=== PATIENT | female | born 1965 | race Caucasian/White ===

== ENCOUNTER 2017-08-19 18:53 | Inpatient (IN) | payer OTHER ==
[2017-08-19 19:43] VITALS: BP 123/60; PULSE 109; RESP 16; TEMP 98.8; O2SAT 80
[2017-08-19 19:50] VITALS: BP 129/70; PULSE 110; RESP 18; TEMP 98.5; O2SAT 78
[2017-08-19 19:52] VITALS: O2SAT 90
[2017-08-19] MEDS ORDERED: GABA400C5 PO (20:00)
[2017-08-19] MEDS ORDERED: ATOR40TA16 PO (20:00)
[2017-08-19] MEDS ORDERED: CYCL5TAB PO (20:00)
[2017-08-19] MEDS ORDERED: DULO1CAP PO (20:00)
[2017-08-19] MEDS ORDERED: LISI10TA3 PO (20:00)
[2017-08-19] MEDS ORDERED: OMEP20TA93 PO (20:00)
[2017-08-19] MEDS ORDERED: METF-382 PO (20:00)
[2017-08-19] MEDS ORDERED: LANTUS2P SQ (20:00)
[2017-08-19] MEDS ORDERED: AZITHROMYCIN 250 MG TAB PO ONE (20:15)
[2017-08-19] MEDS ORDERED: predniSONE 20 MG TAB PO ONE (20:15)
[2017-08-19] MEDS ORDERED: RESP: ALBUTEROL 2.5 MG/IPRATROPIUM 0.5 MG NEB (SCH) NEB ONE ×2 (20:15→22:00)
--- NOTE | 2017-08-19 20:15 | PD ---
HPI Chief Complaint: Cold / Flu Symptoms Time Seen by Provider: 20:03 Travel History International Travel<30 days: No Contact w/Intl Traveler<30days: No Traveled to known affect area: No History of Present Illness HPI Patient is a 51-year-old female with a history of COPD for the last few days she has had a sore throat cough congestion she thinks she has a cold or flu. She has inhaler Combivent HFA which is not relieving her symptoms. She is using it every 6 hours without relief. She is an insulin-dependent diabetic on Lantus 44 units p.m. She is not on steroids at this time she is not on antibiotic she has not seen another doctor for this complaint main complaint is shortness of breath tightness in the chest wheezing and feeling mild air hunger PFSH Past Medical History Diabetes: Yes Patient Takes Glucophage: Yes Diminished Hearing: No ?: Not Past Surgical History Surgical History: No Previous Surgery Social History Alcohol Use: No Tobacco Use: Yes (1PPD ) Substance Use: No Allergies-Medications (Allergen,Severity, Reaction): Coded Allergies: Penicillins (Verified Allergy, Intermediate, 08/19/17) Reported Meds & Prescriptions Reported Meds & Active Scripts Active Oxygen tank (Oxygen) 1 Ea Tank Liter CARLYN.CANOasys Mobile CONTINUOUS Oxygen Concentrator Portable Gaseous 2 L/min via Nasal Cannula Continuous For 99 months Prednisone 20 Mg Tab 40 Mg PO DAILY Take 40 mg (2 tablets) daily for 5 days Atrovent HFA 12.9 GM Inh (Ipratropium [place]) 17 Mcg/Actuation Aer 2 Puff INH Q6HR Ventolin Hfa 18 GM Inh (Albuterol Sulfate) 90 Mcg/Act Aer 2 Puff INH Q4H PRN [Budeson-Formot 160-4.5 Mcg Inh] 60 PUFF Aero 2 Puff INH Q12HR Hydrocodone-Acetamin 5-325 mg (Hydrocodone/Acetaminophen) 5 Mg-325 Mg Tablet 1 Tab PO Q6H PRN Levaquin (Levofloxacin) 750 Mg Tablet 750 Mg PO DAILY Reported Gabapentin 400 Mg Cap 400 Cap PO TID Omeprazole 20 Mg Tab 20 Mg PO DAILY Atorvastatin (Atorvastatin Calcium) 40 Mg Tab 40 Mg PO HS Duloxetine DR (Duloxetine HCl) 20 Mg Capdr 20 Mg PO DAILY Flexeril (Cyclobenzaprine HCl) 5 Mg Tab 5 Mg PO TID Metformin ER (Metformin HCl) 1,000 Mg Brandt 1,000 Mg PO BID With evening meal Lisinopril 10 Mg Tab 10 Mg PO DAILY Review of Systems Except as stated in HPI: all other systems reviewed are Neg Physical Exam Narrative GENERAL: Mild respiratory distress SKIN: Warm and dry. HEAD: Atraumatic. Normocephalic. EYES: Pupils equal and round. No scleral icterus. No injection or drainage. ENT: No nasal bleeding or discharge. Mucous membranes pink and moist. NECK: Trachea midline. No JVD. CARDIOVASCULAR: Regular rate and rhythm. RESPIRATORY: Patient is using accessory muscles minimally diffuse coarse breath sounds with expiratory wheeze in all lung klein upper and lower bilateral patient is deciding on room air to 85% O2. On 2 L she is satting at 90 at best GASTROINTESTINAL: Abdomen soft, non-tender, nondistended. Hepatic and splenic margins not palpable. MUSCULOSKELETAL: Extremities without clubbing, cyanosis, or edema. No obvious deformities. NEUROLOGICAL: Awake and alert. No obvious cranial nerve deficits. Motor grossly within normal limits. Five out of 5 muscle strength in the arms and legs. Normal speech. PSYCHIATRIC: Appropriate mood and affect; insight and judgment normal. Data Data Last Documented VS Vital Signs Date Time Temp Pulse Resp B/P (MAP) Pulse Ox O2 Delivery O2 Flow Rate FiO2 08/20/17 01:30 91 BiPAP 80 08/20/17 01:15 6.00 08/20/17 00:00 103 18 08/19/17 19:50 98.5 Orders Orders Chest, Single Ap (08/19/17 ) Influenzae A/B Antigen (08/19/17 19:50) Complete Blood Count With Diff (08/19/17 19:53) Basic Metabolic Panel (Bmp) (08/19/17 19:53) Prednisone (Deltasone) (08/19/17 20:15) Albuterol-Ipratropium Neb (Duoneb Neb) (08/19/17 20:15) Azithromycin (Zithromax) (08/19/17 20:15) Group A Rapid Strep Screen (08/19/17 20:24) Strep Culture (Group A) (08/19/17 21:00) Resp Oxygen Venturi Mask (08/19/17 ) Albuterol-Ipratropium Neb (Duoneb Neb) (08/19/17 22:00) Arterial Blood Gas (Abg) (08/19/17 ) Resp Bipap / Cpap Non Invas Vt (08/20/17 ) Methylprednisolone So Succ Inj (Solumedr (08/20/17 06:00) Budeson-Formot 160-4.5 Mcg Inh (Symbicor (08/20/17 09:00) Guaifenesin Er (Mucinex Er) (08/20/17 09:00) Albuterol-Ipratropium Neb (Duoneb Neb) (08/20/17 08:00) Albuterol-Ipratropium Neb (Duoneb Neb) (08/20/17 01:30) Admit To Inpatient (08/20/17 ) Vital Signs (Adult) Q4H (08/20/17:17) Activity Oob With Assistance (08/20/17:17) Cardiac Sonographer / Telemetry .CONTINUOUS (08/20/17:17) Intake + Output LEEANNA.QSHIFT (08/20/17 01:17) Diet 1800 Ada Cons Carb (08/20/17 Breakfast) Sodium Chloride 0.9% Flush (Ns Flush) (08/20/17 01:30) Sodium Chloride 0.9% Flush (Ns Flush) (08/20/17 09:00) Ondansetron Inj (Zofran Inj) (08/20/17 01:30) Comprehensive Metabolic Panel (08/21/17 06:00) Complete Blood Count With Diff (08/21/17 06:00) Heparin Inj (Heparin Inj) (08/20/17 09:00) Acetaminophen (Tylenol) (08/20/17 01:30) Acetamin-Hydrocod 325-5 Mg ([place] 5-325 (08/20/17 01:30) Morphine Inj (Morphine Inj) (08/20/17 01:30) Docusate Sodium-Senna (Amy-Colace) (08/20/17 09:00) Magnesium Hydroxide Liq (Milk Of Magnesi (08/20/17 01:30) Sennosides (Senokot) (08/20/17 01:30) Bisacodyl Supp (Dulcolax Supp) (08/20/17 01:30) Lactulose Liq (Lactulose Liq) (08/20/17 01:30) Inpatient Certification (08/20/17 ) Bedside Glucose LEEANNA.CSUGAR (08/20/17 01:17) Blood Glucose Goal (Criteria) (08/20/17 01:17) Hypoglycemia 70 Mg/Dl Or < (08/20/17 01:17) Notify Dr: Other (08/20/17 01:17) Dextrose 50% In Micky (Vial) Inj (D50w (Vi (08/20/17 01:30) Glucagon Inj (Glucagon Inj) (08/20/17 01:30) Insulin Aspart Supplemtl Scale (Novolog (08/20/17 08:00) Atorvastatin (Lipitor) (08/20/17 21:00) Cyclobenzaprine (Flexeril) (08/20/17 09:00) Duloxetine Dr (Dheeraj Roberts) (08/20/17 09:00) Gabapentin (Neurontin) (08/20/17 09:00) Lisinopril (Prinivil) (08/20/17 09:00) Pantoprazole (Protonix) (08/20/17 09:00) Insulin Detemir Inj (Levemir Inj) (08/20/17 21:00) Levofloxacin 750 Mg Premix Inj (Levaquin (08/20/17 01:30) Admit Order (Ed Use Only) (08/20/17 01:28) Labs Laboratory Tests Test 08/19/17 19:58 08/19/17 23:45 White Blood Count 5.1 TH/MM3 Red Blood Count 5.44 MIL/MM3 Hemoglobin 16.2 GM/DL Hematocrit 49.3 % Mean Corpuscular Volume 90.6 FL Mean Corpuscular Hemoglobin 29.7 PG Mean Corpuscular Hemoglobin Concent 32.8 % Red Cell Distribution Width 14.5 % Platelet Count 197 TH/MM3 Mean Platelet Volume 8.9 FL Neutrophils (%) (Auto) 72.6 % Lymphocytes (%) (Auto) 16.2 % Monocytes (%) (Auto) 10.8 % Eosinophils (%) (Auto) 0.0 % Basophils (%) (Auto) 0.4 % Neutrophils # (Auto) 3.7 TH/MM3 Lymphocytes # (Auto) 0.8 TH/MM3 Monocytes # (Auto) 0.6 TH/MM3 Eosinophils # (Auto) 0.0 TH/MM3 Basophils # (Auto) 0.0 TH/MM3 CBC Comment DIFF FINAL Differential Comment Blood Urea Nitrogen 17 MG/DL Creatinine 0.78 MG/DL Random Glucose 331 MG/DL Calcium Level 8.0 MG/DL Sodium Level 129 MEQ/L Potassium Level 3.8 MEQ/L Chloride Level 91 MEQ/L Carbon Dioxide Level 31.0 MEQ/L Anion Gap 7 MEQ/L Estimat Glomerular Filtration Rate 77 ML/MIN Blood Gas Puncture Site LT RADIAL Blood Gas Patient Temperature 98.6 Blood Gas HCO3 30 mmol/L Blood Gas Base Excess 5.1 mmol/L Blood Gas Oxygen Saturation 88 % Arterial Blood pH 7.37 Arterial Blood Partial Pressure CO2 53 mmHg Arterial Blood Partial Pressure O2 62 mmHG Arterial Blood Oxygen Content 19.4 Vol % Arterial Blood Carboxyhemoglobin 1.6 % Arterial Blood Methemoglobin 1.0 % Blood Gas Hemoglobin 15.6 G/DL Oxygen Delivery Device Venti Mask Blood Gas Liter Flow 6 L/M Blood Gas Inspired Oxygen 50 % MDM Medical Decision Making Medical Screen Exam Complete: Yes Emergency Medical Condition: Yes Differential Diagnosis Influenza causing airway reaction versus bronchitis COPD exacerbation versus pneumonia, vs Pneumothorax, Pulmonary embolism Narrative Course Patient is given 3 DuoNeb's and 60 p.o. prednisone she continues to desat even on 3 L nasal cannula she is satting at 88 she switched over to a Ventimask with 40% FiO2 and needs to be increased to 50% FiO2 on Ventimask to hold her sat around 91 she is admitted for further pulmonary care of her inflamed lungs due to her virus bronchitis and COPD. Even on venti mask with 50% still sating 93 at best 85 % as well BiPAP started admitted [facility] PE study negative Diagnosis Primary Impression: COPD (chronic obstructive pulmonary disease) Scripts Insulin Detemir Inj (Levemir Inj) 1,000 unit/ 10 ML Vial 35 UNITS SQ DAILYAC for Blood Sugar Management, #30 INJECTION Do not mix with any other Insulin. Prov: Stephan Peterson MD 08/22/17 Insulin Detemir Inj (Levemir Inj) 1,000 unit/ 10 ML Vial 55 UNITS SQ HS for Blood Sugar Management, #30 INJECTION Do not mix with any other Insulin. Prov: Stephan Peterson MD 08/22/17 Oxygen tank (Oxygen tank) 1 Ea Tank LITER CARLYN.CANULA CONTINUOUS for HYPOXEMIA PREVENTION, #1 Oxygen Concentrator Portable Gaseous 2 L/min via Nasal Cannula Continuous For 99 months Prov: Stephan Peterson MD 08/20/17 Prednisone (Prednisone) 20 Mg Tab 40 MG PO DAILY for Control Inflammation, #10 TAB 0 Refills Take 40 mg (2 tablets) daily for 5 days Prov: Stephan Peterson MD 08/20/17 Ipratropium HFA 12.9 GM Inh (Atrovent HFA 12.9 GM Inh) 17 Mcg/Actuation Aer 2 PUFF INH Q6HR for Breathing Treatment, #1 INHALER 0 Refills Prov: Stephan Peterson MD 08/20/17 Albuterol 18 GM Inh (Ventolin Hfa 18 GM Inh) 90 Mcg/Act Aer 2 PUFF INH Q4H Y for SHORTNESS OF BREATH, #1 INHALER 0 Refills Prov: Stephan Peterson MD 08/20/17 [Budeson-Formot 160-4.5 Mcg Inh] 60 PUFF AERO No Conflict Check 2 PUFF INH Q12HR for Breathing Treatment, #1 PUFF Prov: Stephan Peterson MD 08/20/17 Hydrocodone/Acetaminophen (Hydrocodone-Acetamin 5-325 mg) 5 Mg-325 Mg Tablet 1 TAB PO Q6H Y for PAIN SCALE 3 TO 5, #28 TAB Prov: Stephan Peterson MD 08/20/17 Levofloxacin (Levaquin) 750 Mg Tablet 750 MG PO DAILY for Infection, #4 TAB 0 Refills Prov: Stephan Peterson MD 08/20/17 Francisco Quezada MD Aug 19, 2017 20:15
[2017-08-19 20:27] LABS: AUTOMATED NEUTROPHIL # 3.7 TH/MM3 (1.8-7.7); BASOPHIL % 0.4 % (0.0-2.0); HEMATOCRIT 49.3 % (35.0-46.0); HEMOGLOBIN 16.2 GM/DL (11.6-15.3); LYMPH % 16.2 % (9.0-44.0); LYMPHOCYTE # 0.8 TH/MM3 (1.0-4.8); MEAN CELL VOLUME 90.6 FL (80.0-100.0); MEAN CORPUSCULAR HEMOGLOBIN 29.7 PG (27.0-34.0); MEAN CORPUSCULAR HGB CONC 32.8 % (32.0-36.0); MEAN PLATELET VOLUME 8.9 FL (7.0-11.0); MONO % 10.8 % (0.0-8.0); MONOCYTE # 0.6 TH/MM3 (0-0.9); NEUT % 72.6 % (16.0-70.0); PLATELET COUNT 197 TH/MM3 (150-450); RED BLOOD COUNT 5.44 MIL/MM3 (4.00-5.30); RED CELL DISTRIBUTION WIDTH 14.5 % (11.6-17.2); WHITE BLOOD COUNT 5.1 TH/MM3 (4.0-11.0)
--- NOTE | 2017-08-19 20:35 | RADRPT ---
EXAM DATE/TIME: 08/19/2017 20:00 [facility] COMPARISON: No previous studies available for comparison. INDICATIONS : Shortness of breath MEDICAL HISTORY : Chronic obstructive pulmonary disease. SURGICAL HISTORY : None. ENCOUNTER: Initial ACUITY: 1 day PAIN SCORE: 0/10 LOCATION: Bilateral chest FINDINGS: A single view of the chest demonstrates the lungs to be symmetrically aerated without evidence of mas s, infiltrate or effusion. The cardiomediastinal contours are unremarkable. Osseous structures are intact. CONCLUSION: No acute disease. Yong Pavon MD on August 19, 2017 at 20:33 Board Certified Radiologist. This report was verified electronically.
[2017-08-19 20:56] LABS: CREATININE 0.78 MG/DL (0.50-1.00)
[2017-08-19 21:00] VITALS: BP 153/76; PULSE 104; RESP 16; O2SAT 89
[2017-08-19 22:00] VITALS: BP 142/72; PULSE 103; RESP 18; O2SAT 87
[2017-08-19 23:00] VITALS: O2SAT 88
[2017-08-20] VITALS (20 sets, daily range): BP systolic 95–133; BP diastolic 51–89; PULSE 72–103; RESP 13–23; TEMP 98.1–98.8; O2SAT 72–94
[2017-08-20] MEDS ORDERED: ACETAMINOPHEN/HYDROcodone 325 MG/5 MG TAB PO PRN (01:30)
[2017-08-20] MEDS ORDERED: BISACODYL 10 MG SUPP RECTAL PRN (01:30)
[2017-08-20] MEDS ORDERED: RESP: ALBUTEROL 2.5 MG/IPRATROPIUM 0.5 MG NEB (PRN) NEB (01:30)
[2017-08-20] MEDS ORDERED: DEXTROSE 50% IN WATER 50 ML VIAL(D50) IV PUSH PRN (01:30)
[2017-08-20] MEDS ORDERED: ONDANSETRON HCL 4 MG/2 ML VIAL IVP PRN (01:30)
[2017-08-20] MEDS ORDERED: MORPHINE SULFATE 2 MG/ML SYRINGE IV PUSH PRN (01:30)
[2017-08-20] MEDS ORDERED: MAGNESIUM HYDROXIDE SUSP 30 ML CUP PO PRN (01:30)
[2017-08-20] MEDS ORDERED: LACTULOSE SYRUP 20 GM/30 ML CUP PO PRN (01:30)
[2017-08-20] MEDS ORDERED: GLUCAGON 1 MG/ML VIAL OTHER PRN (01:30)
[2017-08-20] MEDS ORDERED: SENNOSIDES 8.6 MG TAB PO PRN (01:30)
[2017-08-20] MEDS ORDERED: SODIUM CHLORIDE 0.9% FLUSH 10 ML FLUSH IV FLUSH PRN (01:30)
[2017-08-20] MEDS ORDERED: ACETAMINOPHEN 325 MG TAB PO PRN (01:30)
--- NOTE | 2017-08-20 01:36 | HHI.HP ---
[facility] Admission Diagnosis Diagnoses: (1) COPD (chronic obstructive pulmonary disease) Diagnosis: Principal (2) Hypoxia Diagnosis: Principal (3) DM (diabetes mellitus) Diagnosis: Principal Travel History International Travel<30 Days: No Contact w/Intl Traveler <30 Da: No Traveled to Known Affected Are: No History of Present Illness This is a 51-year-old female with a PMH of DM, COPD and Tobacco Abuse who presented to ER with complaints of SOB, wheezing, congestion and sore throat x3 days. States she has been using Combivent at home w/ minimal relief. Denies fever or chills. No sick contacts. On arrival, BP 129/70, HR 110, O2 sat 78% on RA, Afebrile. CBC essentially unremarkable. Chemistry unremarkable except for Na 129, BS 331. ABG 7.37, PCO2 53, PO2 62 on 50% Ventimask. CXR w/ no acute findings. Flu Negative, Strep Negative. S/p Prednisone 60mg po and DuoNeb in ER w/ minimal improvement. Review of Systems Except as stated in HPI: all other systems reviewed are Neg ROS: 14 point review of systems otherwise negative. Past Family Social History Past Medical History PMH: DM, COPD and Tobacco Abuse Past Surgical History PAST SURGICAL HISTORY: None Allergies: Coded Allergies: Penicillins (Verified Allergy, Intermediate, 08/19/17) Family History PAST FAMILY HISTORY: Reviewed. No h/o DM or CAD Social History PAST SOCIAL HISTORY: Negative for alcohol or drugs. Smokes 1ppd. Physical Exam Vital Signs Vital Signs Date Time Temp Pulse Resp B/P (MAP) Pulse Ox O2 Delivery O2 Flow Rate FiO2 08/20/17 00:00 103 18 133/59 (83) 88 Venturi Mask 50 08/19/17 23:00 88 Venturi Mask 50 08/19/17 22:00 103 18 142/72 (95) 87 Nasal Cannula 4.00 08/19/17 21:00 104 16 153/76 (101) 89 Nasal Cannula 4.00 08/19/17 19:52 90 Nasal Cannula 4.00 08/19/17 19:50 98.5 110 18 129/70 (89) 78 Room Air 08/19/17 19:43 98.8 109 16 123/60 (81) 80 08/19/17 19:42 80 Physical Exam PE: GENERAL: Pleasant middle-aged white female in no acute distress, on venti mask w / O2 sat 83%, no distress. HEENT: PERRLA, EOMI. No scleral icterus or conjunctival pallor. No lid lag or facial droop. CARDIOVASCULAR: Regular rate and rhythm. No obvious murmurs to auscultation. No chest tenderness to palpation. RESPIRATORY: No obvious rhonchi or wheezing. Minimal crackles at bases bilaterally. Breath sounds equal bilaterally. GASTROINTESTINAL: Abdomen soft, non-tender, nondistended. BS normal. MUSCULOSKELETAL: Extremities without clubbing, cyanosis, or edema. No obvious deformities. NEUROLOGICAL: Awake, alert and oriented x4. No focal neurologic deficits. Moving both upper and lower extremities spontaneously. Laboratory Laboratory Tests Test 08/19/17 19:58 08/19/17 23:45 White Blood Count 5.1 Red Blood Count 5.44 Hemoglobin 16.2 Hematocrit 49.3 Mean Corpuscular Volume 90.6 Mean Corpuscular Hemoglobin 29.7 Mean Corpuscular Hemoglobin Concent 32.8 Red Cell Distribution Width 14.5 Platelet Count 197 Mean Platelet Volume 8.9 Neutrophils (%) (Auto) 72.6 Lymphocytes (%) (Auto) 16.2 Monocytes (%) (Auto) 10.8 Eosinophils (%) (Auto) 0.0 Basophils (%) (Auto) 0.4 Neutrophils # (Auto) 3.7 Lymphocytes # (Auto) 0.8 Monocytes # (Auto) 0.6 Eosinophils # (Auto) 0.0 Basophils # (Auto) 0.0 CBC Comment DIFF FINAL Differential Comment Blood Urea Nitrogen 17 Creatinine 0.78 Random Glucose 331 Calcium Level 8.0 Sodium Level 129 Potassium Level 3.8 Chloride Level 91 Carbon Dioxide Level 31.0 Anion Gap 7 Estimat Glomerular Filtration Rate 77 Blood Gas Puncture Site LT RADIAL Blood Gas Patient Temperature 98.6 Blood Gas HCO3 30 Blood Gas Base Excess 5.1 Blood Gas Oxygen Saturation 88 Arterial Blood pH 7.37 Arterial Blood Partial Pressure CO2 53 Arterial Blood Partial Pressure O2 62 Arterial Blood Oxygen Content 19.4 Arterial Blood Carboxyhemoglobin 1.6 Arterial Blood Methemoglobin 1.0 Blood Gas Hemoglobin 15.6 Oxygen Delivery Device Venti Mask Blood Gas Liter Flow 6 Blood Gas Inspired Oxygen 50 Date/Time Source Procedure Growth Status 08/19/17 21:00 Throat Group A Streptococcus Screen Pending Received Result Diagram: 08/19/17195708/19/171957 iMller VTE Risk Assessment Miller VTE Risk Assessment: No/Low Risk (score <= 1) Adeelrini Risk Assessment Model Point Value = 1 Point Value = 2 Point Value = 3 Point Value = 5 Age 41-60 Minor surgery BMI > 25 kg/m2 Swollen legs Varicose veins or History of unexplained or recurrent spontaneous Oral contraceptives or hormone replacement Sepsis (< 1 month) Serious lung disease, including pneumonia (< 1 month) Abnormal pulmonary function Acute myocardial infarction Congestive heart failure (< 1 month) History of inflammatory bowel disease Medical patient at bed rest Age 61-74 Arthroscopic surgery Major open surgery (> 45 min) Laparoscopic surgery (> 45 min) Malignancy Confined to bed (> 72 hours) Immobilizing plaster cast Central venous access Age >= 75 History of VTE Family history of VTE Factor V Leiden Prothrombin [id number] Lupus anticoagulant Anticardiolipin antibodies Elevated serum homocysteine Heparin-induced thrombocytopenia Other congenital or acquired thrombophilia Stroke (< 1 month) Elective arthroplasty Hip, pelvis, or leg fracture Acute spinal cord injury (< 1 month) Prophylaxis Regimen Total Risk Factor Score Risk Level Prophylaxis Regimen 0-1 Low Early ambulation 2 Moderate Order ONE of the following: *Sequential Compression Device (SCD) *Heparin 5000 units SQ BID 3-4 Higher Order ONE of the following medications: *Heparin 5000 units SQ TID *Enoxaparin/Lovenox 40 mg SQ daily (WT < 150 kg, CrCl > 30 mL/min) *Enoxaparin/Lovenox 30 mg SQ daily (WT < 150 kg, CrCl > 10-29 mL/min) *Enoxaparin/Lovenox 30 mg SQ BID (WT < 150 kg, CrCl > 30 mL/min) AND/OR *Sequential Compression Device (SCD) 5 or more Highest Order ONE of the following medications: *Heparin 5000 units SQ TID (Preferred with Epidurals) *Enoxaparin/Lovenox 40 mg SQ daily (WT < 150 kg, CrCl > 30 mL/min) *Enoxaparin/Lovenox 30 mg SQ daily (WT < 150 kg, CrCl > 10-29 mL/min) *Enoxaparin/Lovenox 30 mg SQ BID (WT < 150 kg, CrCl > 30 mL/min) AND *Sequential Compression Device (SCD) Assessment and Plan Problem List: (1) COPD (chronic obstructive pulmonary disease) ICD Code: J44.9 - Chronic obstructive pulmonary disease, unspecified (2) Hypoxia ICD Code: R09.02 - Hypoxemia (3) DM (diabetes mellitus) ICD Code: E11.9 - Type 2 diabetes mellitus without complications Assessment and Plan A/P: 1. COPD: Chronic Respiratory Failure w/ Acute Exacerbation. Severe. S/p Prednisone 60mg and DuoNeb in ER w/ minimal improvement. CXR w/ no acute findings, images reviewed by me. DuoNeb, Solu-Medrol, Mucinex, Symbicort. Start Levaquin for empiric treatment of atypical PNA. 2. Hypoxia: O2 sat 78% on RA, has remained hypoxic while in ER despite Venti- mask at 50% w/ O2 80's. ABG reviewed, will start BIPAP, wean as tolerated. 3. DM: Sliding scale w/ Accu-Cheks. Hold Metformin for now. Resume home Insulin. 4. DVT Prophylaxis: Heparin sq 5. Social work for d/c planning as needed. 6. Case discussed w/ ER physician at length, labs/records/imaging reviewed by me. Physician Certification 2 Midnight Certification Type: Admission for Inpatient Services Order for Inpatient Services The services are ordered in accordance with Medicare regulations or non- Medicare payer requirements, as applicable. In the case of services not specified as inpatient-only, they are appropriately provided as inpatient services in accordance with the 2-midnight benchmark. Estimated LOS (days): 2 days is the estimated time the patient will need to remain in the hospital, assuming treatment plan goals are met and no additional complications. Post-Hospital Plan: Not yet determined Kenia Singleton MD Aug 20, 2017 01:36
[2017-08-20] MEDS: LEVOFLOXACIN 750 MG PREMIX INJ 150 ML IV SCH (02:09)
[2017-08-20] MEDS ORDERED: IOHEXOL 350 MG/ML 10 ML VIAL (for RAD DIAG) IVCONTRAST ONE (04:05)
--- NOTE | 2017-08-20 04:18 | RADRPT ---
EXAM DATE/TIME: 08/20/2017 03:57 [facility] COMPARISON: No previous studies available for comparison. INDICATIONS : Decreased oxygen saturation; rule out pulmonary embolus. IV CONTRAST: 75 cc Omnipaque 350 (iohexol) IV RADIATION DOSE: 10.71 CTDIvol (mGy) MEDICAL HISTORY : Diabetes mellitus type 2. SURGICAL HISTORY : None. ENCOUNTER: Initial ACUITY: 1 day PAIN SCALE: 0/10 LOCATION: chest TECHNIQUE: Volumetric scanning of the chest was performed using a pulmonary embolism protocol MIP images were re constructed. Using automated exposure control and adjustment of the mA and/or kV according to patien t size, radiation dose was kept as low as reasonably achievable to obtain optimal diagnostic quality images. DICOM format image data is available electronically for review and comparison. Follow-up recommendations for detected pulmonary nodules are based at a minimum on nodule size and pa tient risk factors according to Fleischner Society Guidelines. FINDINGS: Examination of the pulmonary vasculature demonstrates good filling of the main, lobar and segmental b ranches. There are no filling defects to suggest pulmonary embolism. Multiplanar reconstructions are also unremarkable. There is atelectasis in the right midlung. No pleural effusions are identified. No pulmonary nodules are identified. Examination of the mediastinum demonstrates no abnormally enlarged lymph nodes by CT criteria. No axillary or hilar abnormalities are identified. Coronary artery calcifications are not p resent. There is a nodule in the left adrenal gland likely reflecting adenoma measuring 2 cm. CONCLUSION: 1. No evidence of pulmonary embolism. 2. Probable left adrenal adenoma Kendall Fang MD on August 20, 2017 at 4:14 Board Certified Radiologist. This report was verified electronically.
[2017-08-20] MEDS: methylPREDNISolone SOD SUCC 40 MG/1 ML VIAL IV PUSH SCH ×2 (06:33→11:17)
[2017-08-20] MEDS: RESP: ALBUTEROL 2.5 MG/IPRATROPIUM 0.5 MG NEB (SCH) NEB ×4 (08:10→22:01)
[2017-08-20] MEDS ORDERED: DOCUSATE SODIUM 50 MG/SENNA 8.6 MG TAB PO SCH (09:00)
[2017-08-20] MEDS: BUDESONIDE-FORMOTEROL 160/4.5 MCG INHALER INH SCH ×3 (09:00→23:09)
--- NOTE | 2017-08-20 09:32 | HHI.PR ---
Subjective Remarks Follow-up respiratory failure and COPD exacerbation. States she is feeling better currently on Ventimask. Does not use oxygen at home. Discussed with nursing, patient able to ambulate Objective Vitals Vital Signs Date Time Temp Pulse Resp B/P (MAP) Pulse Ox O2 Delivery O2 Flow Rate FiO2 08/20/17 08:12 89 Venturi Mask 6.00 50 08/20/17 05:00 95 18 127/59 (81) 91 Venturi Mask 50 08/20/17 03:39 89 Venturi Mask 6.00 50 08/20/17 03:35 90 Venturi Mask 50 08/20/17 02:30 94 60 08/20/17 01:30 91 BiPAP 80 08/20/17 01:18 90 80 08/20/17 01:15 88 Venturi Mask 6.00 50 08/20/17 00:00 103 18 133/59 (83) 88 Venturi Mask 50 08/19/17 23:00 88 Venturi Mask 50 08/19/17 22:00 103 18 142/72 (95) 87 Nasal Cannula 4.00 08/19/17 21:00 104 16 153/76 (101) 89 Nasal Cannula 4.00 08/19/17 19:52 90 Nasal Cannula 4.00 08/19/17 19:50 98.5 110 18 129/70 (89) 78 Room Air 08/19/17 19:43 98.8 109 16 123/60 (81) 80 08/19/17 19:42 80 I/O 08/19/17 08/19/17 08/19/17 08/20/17 08/20/17 08/20/17 07:00 15:00 23:00 07:00 15:00 23:00 Intake Total 150 ml Balance 150 ml Intake IV Total 150 ml Result Diagram: 08/19/17195708/19/171957 Imaging Last Impressions CT Angiography 08/20/17 0000 Signed Impressions: Service Date/Time: Sunday, August 20, 2017 03:57 - CONCLUSION: 1. No evidence of pulmonary embolism. 2. Probable left adrenal adenoma Kendall Fang MD Chest X-Ray 08/19/17 0000 Signed Impressions: Service Date/Time: Saturday, August 19, 2017 20:00 - CONCLUSION: No acute disease. Yong Pavon MD Objective Remarks GENERAL: Pleasant middle-aged white female in no acute distress, on venti mask no distress. HEENT: PERRLA, EOMI. No scleral icterus or conjunctival pallor. No lid lag or facial droop. CARDIOVASCULAR: Regular rate and rhythm. No obvious murmurs to auscultation. No chest tenderness to palpation. RESPIRATORY: No obvious rhonchi or wheezing. Minimal crackles at bases bilaterally. Breath sounds equal bilaterally. GASTROINTESTINAL: Abdomen soft, non-tender, nondistended. BS normal. MUSCULOSKELETAL: Extremities without clubbing, cyanosis, or edema. No obvious deformities. NEUROLOGICAL: Awake, alert and oriented x4. No focal neurologic deficits. Moving both upper and lower extremities spontaneously. Procedures none A/P Problem List: (1) COPD (chronic obstructive pulmonary disease) ICD Code: J44.9 - Chronic obstructive pulmonary disease, unspecified (2) Hypoxia ICD Code: R09.02 - Hypoxemia (3) DM (diabetes mellitus) ICD Code: E11.9 - Type 2 diabetes mellitus without complications Assessment and Plan 1. COPD: Chronic Respiratory Failure w/ Acute Exacerbation. Severe. S/p Prednisone 60mg and DuoNeb in ER w/ minimal improvement. CXR w/ no acute findings, images reviewed by me. Improving ct DuoNeb, Solu-Medrol, Mucinex, Symbicort and Levaquin for empiric treatment of atypical PNA. Increase activity 2. Hypoxia: O2 sat 78% on RA, has remained hypoxic while in ER despite Venti- mask at 50% w/ O2 80's. ABG reviewed. Improved wean and dc O2 prn BIPAP. Walk test 3. DM: Sliding scale w/ Accu-Cheks. Hold Metformin for now. Resume home Insulin. 4. Possible left AG adenoma. Op f/u DVT Prophylaxis: Heparin sq Discharge Planning keep in ICU today hi likelihood of decompensation requiring intubation Stephan Peterson MD Aug 20, 2017 09:32
[2017-08-20] MEDS ORDERED: INSULIN HUMAN NPH 1,000 UNITS/10 ML VIAL SQ ONE ×2 (10:00→17:30)
[2017-08-20] MEDS: INSULIN ASPART SUPPLEMENTAL SCALE SQ SCH ×3 (10:05→21:00)
[2017-08-20] MEDS: SODIUM CHLORIDE 0.9% FLUSH 10 ML FLUSH IV FLUSH SCH ×2 (10:06→21:26)
[2017-08-20] MEDS: PANTOPRAZOLE SOD 20 MG DELAYED RELEASE TAB PO SCH (10:06)
[2017-08-20] MEDS: GABAPENTIN 400 MG CAP PO SCH ×3 (10:06→17:34)
[2017-08-20] MEDS: guaiFENesin E.R. 600 MG TAB PO SCH ×2 (10:06→21:29)
[2017-08-20] MEDS: LISINOPRIL 10 MG TAB PO SCH (10:06)
[2017-08-20] MEDS: HEPARIN SODIUM - SQ 10,000 UNITS/ML VIAL SQ SCH ×2 (10:07→21:26)
[2017-08-20] MEDS: CYCLOBENZAPRINE HCL 10 MG TAB PO SCH ×3 (10:08→17:34)
[2017-08-20] MEDS: DULoxetine HCl DR 20 MG CAP PO SCH (10:35)
--- NOTE | 2017-08-20 12:10 | PD.CONS ---
History of Present Illness Service Pulmonary Consult Requested By Reason for Consult COPD/hypoxia Primary Care Physician Unknown Diagnoses: History of Present Illness Patient is a pleasant 51yo female who has copd. She came into hospital with increased sob, dry cough and wheezing for 1 week She was found to be hypoxic and placed on venti mask Upon seeing patient she states she feels a little better. She did not like using bipap. Denies hemoptysis or purulent sputum production. Social history: Current smoker 40pk year history Review of Systems Except as stated in HPI: all other systems reviewed are Neg Past Family Social History Allergies: Coded Allergies: Penicillins (Verified Allergy, Intermediate, 08/19/17) Physical Exam Vital Signs Vital Signs Date Time Temp Pulse Resp B/P (MAP) Pulse Ox O2 Delivery O2 Flow Rate FiO2 08/20/17 11:10 30 08/20/17 08:12 89 Venturi Mask 6.00 50 08/20/17 05:00 95 18 127/59 (81) 91 Venturi Mask 50 08/20/17 03:39 89 Venturi Mask 6.00 50 08/20/17 03:35 90 Venturi Mask 50 08/20/17 02:30 94 60 08/20/17 01:30 91 BiPAP 80 08/20/17 01:18 90 80 08/20/17 01:15 88 Venturi Mask 6.00 50 08/20/17 00:00 103 18 133/59 (83) 88 Venturi Mask 50 08/19/17 23:00 88 Venturi Mask 50 08/19/17 22:00 103 18 142/72 (95) 87 Nasal Cannula 4.00 08/19/17 21:00 104 16 153/76 (101) 89 Nasal Cannula 4.00 08/19/17 19:52 90 Nasal Cannula 4.00 08/19/17 19:50 98.5 110 18 129/70 (89) 78 Room Air 08/19/17 19:43 98.8 109 16 123/60 (81) 80 08/19/17 19:42 80 Physical Exam GENERAL: This is a well-nourished, well-developed patient, in no apparent distress. SKIN: No rashes, ecchymoses or lesions. Cool and dry. HEAD: Atraumatic. Normocephalic. No temporal or scalp tenderness. EYES: Pupils equal round and reactive. Extraocular motions intact. No scleral icterus. No injection or drainage. ENT: Nose without bleeding, purulent drainage or septal hematoma. Throat without erythema, tonsillar hypertrophy or exudate. Uvula midline. Airway patent. NECK: Trachea midline. No JVD or lymphadenopathy. Supple, nontender, no meningeal signs. CARDIOVASCULAR: Regular rate and rhythm without murmurs, gallops, or rubs. RESPIRATORY: Clear to auscultation. Breath sounds equal bilaterally. No wheezes , rales, or rhonchi. GASTROINTESTINAL: Abdomen soft, non-tender, nondistended. No hepato-splenomegaly , or palpable masses. No guarding. MUSCULOSKELETAL: Extremities without clubbing, cyanosis, or edema. No joint tenderness, effusion, or edema noted. No calf tenderness. Negative Homans sign bilaterally. NEUROLOGICAL: Awake and alert. Cranial nerves II through XII intact. Motor and sensory grossly within normal limits. Five out of 5 muscle strength in all muscle groups. Normal speech. Laboratory Laboratory Tests Test 08/19/17 19:58 08/19/17 23:45 08/20/17 04:50 White Blood Count 5.1 Red Blood Count 5.44 Hemoglobin 16.2 Hematocrit 49.3 Mean Corpuscular Volume 90.6 Mean Corpuscular Hemoglobin 29.7 Mean Corpuscular Hemoglobin Concent 32.8 Red Cell Distribution Width 14.5 Platelet Count 197 Mean Platelet Volume 8.9 Neutrophils (%) (Auto) 72.6 Lymphocytes (%) (Auto) 16.2 Monocytes (%) (Auto) 10.8 Eosinophils (%) (Auto) 0.0 Basophils (%) (Auto) 0.4 Neutrophils # (Auto) 3.7 Lymphocytes # (Auto) 0.8 Monocytes # (Auto) 0.6 Eosinophils # (Auto) 0.0 Basophils # (Auto) 0.0 CBC Comment DIFF FINAL Differential Comment Blood Urea Nitrogen 17 Creatinine 0.78 Random Glucose 331 Calcium Level 8.0 Sodium Level 129 Potassium Level 3.8 Chloride Level 91 Carbon Dioxide Level 31.0 Anion Gap 7 Estimat Glomerular Filtration Rate 77 Blood Gas Puncture Site LT RADIAL Blood Gas Patient Temperature 98.6 Blood Gas HCO3 30 Blood Gas Base Excess 5.1 Blood Gas Oxygen Saturation 88 Arterial Blood pH 7.37 Arterial Blood Partial Pressure CO2 53 Arterial Blood Partial Pressure O2 62 Arterial Blood Oxygen Content 19.4 Arterial Blood Carboxyhemoglobin 1.6 Arterial Blood Methemoglobin 1.0 Blood Gas Hemoglobin 15.6 Oxygen Delivery Device Venti Mask Blood Gas Liter Flow 6 Blood Gas Inspired Oxygen 50 Nasal Screen MRSA (PCR) MRSA NOT DETECTED Date/Time Source Procedure Growth Status 08/19/17 21:00 Throat Group A Streptococcus Screen Pending Received Result Diagram: 08/19/17195708/19/171957 Imaging CTA reviewed. negative for PE. Right atelectasis seen Assessment and Plan Assessment and Plan COPD with exacerbation Acute hypoxic/hypercapnic respiratory insufficiency Obesity Likely KARYNA Tobacco dependence Agree with IV steroids Abx F/u cxs On venti mask Cont supplemental o2 to keep sats > 89% Would benefit from bipap qhs and prn May need bipap to improve oxygenation Symbicort Duonebs q6hrs IS Advised patient she will benefit from outpatient pulmonary evaluation including sleep study Further orders per Dr. Florez Thank you for this consultation Fartun Forman Aug 20, 2017 12:10
[2017-08-20] MEDS ORDERED: LEVA750T9 PO (14:07)
[2017-08-20] MEDS ORDERED: PRED20 PO (14:07)
[2017-08-20] MEDS ORDERED: OXYGENTANK NAS.CANULA (14:07)
[2017-08-20] MEDS ORDERED: VENTAER INH (14:07)
[2017-08-20] MEDS ORDERED: IPRA17I INH (14:07)
[2017-08-20] MEDS ORDERED: Budeson-Formot 160-4.5 Mcg Inh INH (14:07)
[2017-08-20] MEDS ORDERED: HYDR-3516 PO (14:07)
--- NOTE | 2017-08-20 14:07 | HHI.DCPOC ---
Discharge Care Plan Diagnosis: (1) COPD (chronic obstructive pulmonary disease) (2) Hypoxia Your Health Problems Are: Difficulty with ADL Exercise Tolerance Goals to Promote Your Health * To prevent worsening of your condition and complications * To maintain your health at the optimal level Directions to Meet Your Goals Take your medications as prescribed Follow your dietary instruction Follow activity as directed Keep your appointments as scheduled Take your immunizations and boosters as scheduled If your symptoms worsen call your PCP, if no PCP go to Urgent Care Center or Emergency Room Smoking is Dangerous to Your Health. Avoid second hand smoke Call the 24-hour hour crisis hotline for domestic abuse at Stephan Peterson MD Aug 20, 2017 14:07
[2017-08-20] MEDS: predniSONE 20 MG TAB PO SCH (17:35)
[2017-08-20] MEDS: INSULIN DETEMIR 100 UNITS/ML VIAL SQ SCH (21:00)
[2017-08-20] MEDS ORDERED: FUROSEMIDE 40 MG/4 ML VIAL IV PUSH ONE (21:00)
[2017-08-20] MEDS: ATORVASTATIN 40 MG TAB PO SCH (21:25)
[2017-08-21] VITALS (28 sets, daily range): BP systolic 101–128; BP diastolic 52–62; PULSE 77–96; RESP 16–21; TEMP 97.4–98.8; O2SAT 89–97
[2017-08-21] MEDS: LEVOFLOXACIN 750 MG PREMIX INJ 150 ML IV SCH (02:32)
[2017-08-21 05:27] LABS: AUTOMATED NEUTROPHIL # 7.7 TH/MM3 (1.8-7.7); BASOPHIL % 0.3 % (0.0-2.0); HEMATOCRIT 47.5 % (35.0-46.0); HEMOGLOBIN 15.5 GM/DL (11.6-15.3); LYMPH % 8.3 % (9.0-44.0); LYMPHOCYTE # 0.8 TH/MM3 (1.0-4.8); MEAN CELL VOLUME 89.8 FL (80.0-100.0); MEAN CORPUSCULAR HEMOGLOBIN 29.3 PG (27.0-34.0); MEAN CORPUSCULAR HGB CONC 32.6 % (32.0-36.0); MEAN PLATELET VOLUME 8.5 FL (7.0-11.0); MONO % 6.6 % (0.0-8.0); MONOCYTE # 0.6 TH/MM3 (0-0.9); NEUT % 84.8 % (16.0-70.0); PLATELET COUNT 225 TH/MM3 (150-450); RED BLOOD COUNT 5.29 MIL/MM3 (4.00-5.30); RED CELL DISTRIBUTION WIDTH 14.6 % (11.6-17.2); WHITE BLOOD COUNT 9.1 TH/MM3 (4.0-11.0)
[2017-08-21 05:47] LABS: ALBUMIN 3.2 GM/DL (3.4-5.0); ALKALINE PHOSPHATASE 92 U/L (45-117); ALT (GPT) 36 U/L (10-53); AST (GOT) 33 U/L (15-37); BICARBONATE 32.6 MEQ/L (21.0-32.0); BLOOD UREA NITROGEN 32 MG/DL (7-18); CALCIUM 8.6 MG/DL (8.5-10.1); CHLORIDE 89 MEQ/L (98-107); CREATININE 0.92 MG/DL (0.50-1.00); GLOMERULAR FILTRATION RATE 64 ML/MIN (>89); GLUCOSE,RANDOM 404 MG/DL (74-106); SODIUM (NA) 129 MEQ/L (136-145); TOTAL BILIRUBIN ADULT 0.3 MG/DL (0.2-1.0); TOTAL PROTEIN 7.1 GM/DL (6.4-8.2)
[2017-08-21] MEDS: INSULIN ASPART SUPPLEMENTAL SCALE SQ SCH ×4 (08:00→21:00)
[2017-08-21] MEDS: DULoxetine HCl DR 20 MG CAP PO SCH (08:56)
[2017-08-21] MEDS: CYCLOBENZAPRINE HCL 10 MG TAB PO SCH ×3 (08:56→17:03)
[2017-08-21] MEDS: guaiFENesin E.R. 600 MG TAB PO SCH ×2 (08:57→21:28)
[2017-08-21] MEDS: GABAPENTIN 400 MG CAP PO SCH ×3 (08:57→17:03)
[2017-08-21] MEDS: predniSONE 20 MG TAB PO SCH (08:58)
[2017-08-21] MEDS: PANTOPRAZOLE SOD 20 MG DELAYED RELEASE TAB PO SCH (08:58)
[2017-08-21] MEDS: LISINOPRIL 10 MG TAB PO SCH (08:59)
[2017-08-21] MEDS: HEPARIN SODIUM - SQ 10,000 UNITS/ML VIAL SQ SCH ×2 (09:00→21:29)
[2017-08-21] MEDS: SODIUM CHLORIDE 0.9% FLUSH 10 ML FLUSH IV FLUSH SCH ×2 (09:00→21:36)
[2017-08-21] MEDS: BUDESONIDE-FORMOTEROL 160/4.5 MCG INHALER INH SCH ×2 (09:03→21:28)
--- NOTE | 2017-08-21 09:20 | HHI.PR ---
Subjective Remarks Follow-up respiratory failure. She is doing better currently on 4 L nasal cannula. Earlier she was on Ventimask and BiPAP overnight. Denies shortness of breath. Received IV Lasix for bilateral lower extremity swelling which is chronic. Patient denies history of heart failure and has been evaluated in the past. Reports diabetes has been uncontrolled fingerstick in the 400s prior to admit. Discussed with nursing Objective Vitals Vital Signs Date Time Temp Pulse Resp B/P (MAP) Pulse Ox O2 Delivery O2 Flow Rate FiO2 08/21/17 09:00 91 08/21/17 08:00 97.6 82 18 101/54 (70) 96 08/21/17 08:00 96 08/21/17 08:00 96 Venturi Mask 6.00 08/21/17 07:00 80 08/21/17 06:06 78 08/21/17 05:12 80 08/21/17 04:00 80 08/21/17 04:00 97.7 77 18 116/62 (80) 96 08/21/17 03:00 81 08/21/17 02:00 90 08/21/17 01:18 78 08/21/17 01:00 97 45 08/21/17 00:19 88 08/21/17 00:00 97.4 88 18 113/52 (72) 91 08/20/17 23:00 75 08/20/17 22:01 92 Venturi Mask 6.00 50 08/20/17 22:00 75 08/20/17 20:00 98.5 72 13 95/51 (66) 72 08/20/17 20:00 72 08/20/17 19:00 92 Nasal Cannula 08/20/17 18:25 92 40 08/20/17 18:00 88 08/20/17 18:00 94 Bi-Pap 45 08/20/17 16:00 98.6 84 15 100/59 (73) 79 08/20/17 16:00 78 08/20/17 14:00 87 08/20/17 12:00 98.1 88 23 96/52 (67) 87 08/20/17 12:00 88 08/20/17 11:10 30 08/20/17 10:00 100 I/O 08/20/17 08/20/17 08/20/17 08/21/17 08/21/1718 07:00 15:00 23:00 07:00 15:00 23:00 Intake Total 150 ml 500 ml 440 ml Output Total 450 ml Balance 150 ml 500 ml -10 ml Intake Oral 500 ml 440 ml IV Total 150 ml Output Urine Total 450 ml # Voids 3 2 # Bowel Movements 1 Result Diagram: 08/21/17 0435 08/21/17 [address] Angiography 08/20/17 0000 Signed Impressions: Service Date/Time: Sunday, August 20, 2017 03:57 - CONCLUSION: 1. No evidence of pulmonary embolism. 2. Probable left adrenal adenoma Kendall Fang MD Chest X-Ray 08/19/17 0000 Signed Impressions: Service Date/Time: Saturday, August 19, 2017 20:00 - CONCLUSION: No acute disease. Yong Pavon MD Objective Remarks GENERAL: Pleasant middle-aged white female in no acute distress, on nasal cannula no distress. HEENT: PERRLA, EOMI. No scleral icterus or conjunctival pallor. No lid lag or facial droop. CARDIOVASCULAR: Regular rate and rhythm. No obvious murmurs to auscultation. No chest tenderness to palpation. RESPIRATORY: Scattered rhonchi. No wheezes equal breath sounds GASTROINTESTINAL: Abdomen soft, non-tender, nondistended. BS normal. MUSCULOSKELETAL: Extremities without clubbing, cyanosis with bilateral trace leg edema. No obvious deformities. NEUROLOGICAL: Awake, alert and oriented x4. No focal neurologic deficits. Moving both upper and lower extremities spontaneously. Procedures none A/P Problem List: (1) COPD (chronic obstructive pulmonary disease) ICD Code: J44.9 - Chronic obstructive pulmonary disease, unspecified (2) Hypoxia ICD Code: R09.02 - Hypoxemia (3) DM (diabetes mellitus) ICD Code: E11.9 - Type 2 diabetes mellitus without complications Assessment and Plan 1. COPD: Chronic Respiratory Failure w/ Acute Exacerbation. Severe. S/p Prednisone 60mg and DuoNeb in ER w/ minimal improvement. CXR w/ no acute findings, images reviewed by me. Improving ct DuoNeb, prednisone, Mucinex, Symbicort and Levaquin for empiric treatment of atypical PNA. Increase activity. BiPAP as needed. Will request case management to arrange for tripod vent if recommended by pulmonary 2. Hypoxia: O2 sat 78% on RA, has remained hypoxic while in ER despite Venti- mask at 50% w/ O2 80's. ABG reviewed. Improved wean and dc O2 prn BIPAP. Walk test 3. DM: Sliding scale w/ Accu-Cheks. Hold Metformin for now. Uncontrolled will start Levemir 15 units this morning and continue 44 units at bedtime. Diabetic education 4. Possible left AG adenoma. Op f/u DVT Prophylaxis: Heparin sq Discharge Planning Not ready for discharge secondary to hypoxia requiring high amounts of oxygen. Stephan Peterson MD Aug 21, 2017 09:20
[2017-08-21] MEDS ORDERED: INSULIN DETEMIR 100 UNITS/ML VIAL SQ SCH (09:30)
[2017-08-21] MEDS: RESP: ALBUTEROL 2.5 MG/IPRATROPIUM 0.5 MG NEB (SCH) NEB ×4 (09:40→20:23)
[2017-08-21 11:30] LABS: HEMOGLOBIN A1C 12.9 % (4.3-6.0)
--- NOTE | 2017-08-21 13:43 | HHI.PR ---
Subjective Remarks Better No signifcant events overnight Breathing improved Objective Vital Signs Vital Signs Date Time Temp Pulse Resp B/P (MAP) Pulse Ox O2 Delivery O2 Flow Rate FiO2 08/21/17 13:00 83 08/21/17 12:00 98.4 86 21 107/62 (77) 91 08/21/17 12:00 85 08/21/17 11:00 89 08/21/17 10:37 4.00 08/21/17 10:00 94 08/21/17 09:43 92 Nasal Cannula 3.00 08/21/17 09:00 91 08/21/17 08:00 97.6 82 18 101/54 (70) 96 08/21/17 08:00 96 08/21/17 08:00 96 Venturi Mask 6.00 08/21/17 07:00 80 08/21/17 06:06 78 08/21/17 05:12 80 08/21/17 04:00 80 08/21/17 04:00 97.7 77 18 116/62 (80) 96 08/21/17 03:00 81 08/21/17 02:00 90 08/21/17 01:18 78 08/21/17 01:00 97 45 08/21/17 00:19 88 08/21/17 00:00 97.4 88 18 113/52 (72) 91 08/20/17 23:00 75 08/20/17 22:01 92 Venturi Mask 6.00 50 08/20/17 22:00 75 08/20/17 20:00 98.5 72 13 95/51 (66) 72 08/20/17 20:00 72 08/20/17 19:00 92 Nasal Cannula 08/20/17 18:25 92 40 08/20/17 18:00 88 08/20/17 18:00 94 Bi-Pap 45 08/20/17 16:00 98.6 84 15 100/59 (73) 79 08/20/17 16:00 78 08/20/17 14:00 87 I/O 08/20/17 08/20/17 08/20/17 08/21/17 08/21/17 08/21/17 07:00 15:00 23:00 07:00 15:00 23:00 Intake Total 150 ml 500 ml 440 ml Output Total 450 ml Balance 150 ml 500 ml -10 ml Intake Oral 500 ml 440 ml IV Total 150 ml Output Urine Total 450 ml # Voids 3 2 # Bowel Movements 1 General: NAD HEENT: NCAT Lungs: clear Heart: S1, S2 Abd: soft, nontender Ext: minimal LE edema Result Diagram: 08/21/1743408/21/17434 A/P Assessment and Plan COPD with exacerbation Acute hypoxic/hypercapnic respiratory insufficiency Obesity Likely KARYNA Tobacco dependence Agree with IV steroids Abx F/u cxs Cont supplemental o2 to keep sats > 89% Would benefit from bipap qhs and prn Symbicort Duonebs q6hrs IS Advised patient she will benefit from outpatient pulmonary evaluation including sleep study Fartun Forman Aug 21, 2017 13:43
[2017-08-21] MEDS: INSULIN DETEMIR 100 UNITS/ML VIAL SQ SCH (21:00)
[2017-08-21] MEDS: ATORVASTATIN 40 MG TAB PO SCH (21:29)
[2017-08-21] MEDS ORDERED: INSULIN DETEMIR 100 UNITS/ML VIAL SQ ONE (22:00)
[2017-08-22] VITALS (25 sets, daily range): BP systolic 110–128; BP diastolic 55–59; PULSE 72–122; RESP 18–20; TEMP 97.9–98.2; O2SAT 92–97
[2017-08-22 05:16] LABS: BICARBONATE 33.4 MEQ/L (21.0-32.0); CALCIUM 8.7 MG/DL (8.5-10.1); CREATININE 0.71 MG/DL (0.50-1.00); MAGNESIUM 1.9 MG/DL (1.5-2.5)
[2017-08-22] MEDS: INSULIN ASPART SUPPLEMENTAL SCALE SQ SCH ×4 (07:57→21:31)
[2017-08-22] MEDS: HEPARIN SODIUM - SQ 10,000 UNITS/ML VIAL SQ SCH ×2 (07:58→21:32)
[2017-08-22] MEDS: GABAPENTIN 400 MG CAP PO SCH ×3 (07:59→17:26)
[2017-08-22] MEDS: DULoxetine HCl DR 20 MG CAP PO SCH (07:59)
[2017-08-22] MEDS: PANTOPRAZOLE SOD 20 MG DELAYED RELEASE TAB PO SCH (07:59)
[2017-08-22] MEDS: guaiFENesin E.R. 600 MG TAB PO SCH ×2 (07:59→21:32)
[2017-08-22] MEDS: LEVOFLOXACIN 750 MG TAB PO SCH (07:59)
[2017-08-22] MEDS: predniSONE 20 MG TAB PO SCH (07:59)
[2017-08-22] MEDS: BUDESONIDE-FORMOTEROL 160/4.5 MCG INHALER INH SCH ×2 (08:00→21:00)
[2017-08-22] MEDS: LISINOPRIL 10 MG TAB PO SCH (08:00)
[2017-08-22] MEDS ORDERED: INSULIN DETEMIR 100 UNITS/ML VIAL SQ SCH (08:00)
[2017-08-22] MEDS: SODIUM CHLORIDE 0.9% FLUSH 10 ML FLUSH IV FLUSH SCH ×2 (08:03→21:32)
[2017-08-22] MEDS: CYCLOBENZAPRINE HCL 10 MG TAB PO SCH ×3 (08:03→17:26)
[2017-08-22] MEDS: RESP: ALBUTEROL 2.5 MG/IPRATROPIUM 0.5 MG NEB (SCH) NEB ×4 (08:08→19:21)
--- NOTE | 2017-08-22 09:43 | HHI.PR ---
Subjective Remarks Follow-up COPD. She is doing much better, she did not use BiPAP last night. Currently on 3 L. Ambulating in the room. Discussed with nursing, patient cleared for discharge by pulmonary. Tri logy vent can be arranged outpatient if needed Objective Vitals Vital Signs Date Time Temp Pulse Resp B/P (MAP) Pulse Ox O2 Delivery O2 Flow Rate FiO2 08/22/17 09:00 114 08/22/17 08:08 93 Nasal Cannula 3.00 08/22/17 08:00 96 08/22/17 07:00 93 Nasal Cannula 3.00 08/22/17 07:00 92 08/22/17 06:13 72 08/22/17 05:10 78 08/22/17 04:00 80 08/22/17 03:00 98.2 83 18 128/59 (82) 94 08/22/17 03:00 77 08/22/17 02:00 82 08/22/17 01:00 86 08/22/17 00:00 122 08/21/17 23:00 87 08/21/17 23:00 98.0 90 16 112/53 (72) 93 08/21/17 22:00 86 08/21/17 21:00 86 08/21/17 20:23 89 Nasal Cannula 3.50 08/21/17 20:00 88 08/21/17 20:00 98.6 87 18 128/59 (82) 94 08/21/17 19:00 94 Nasal Cannula 3.50 08/21/17 19:00 93 08/21/17 18:01 95 08/21/17 17:00 96 08/21/17 16:00 98.8 94 20 116/57 (76) 90 08/21/17 16:00 84 08/21/17 15:00 93 08/21/17 14:00 89 08/21/17 13:00 83 08/21/17 12:00 98.4 86 21 107/62 (77) 91 08/21/17 12:00 85 08/21/17 11:00 89 08/21/17 10:37 4.00 08/21/17 10:00 94 08/21/17 09:43 92 Nasal Cannula 3.00 I/O 08/21/17 08/21/17 08/21/17 08/22/17 08/22/17 08/22/17 07:00 15:00 23:00 07:00 15:00 23:00 Intake Total 440 ml 1080 ml 700 ml Output Total 450 ml 1400 ml 1700 ml Balance -10 ml -320 ml -1000 ml Intake Oral 440 ml 1080 ml 700 ml Output Urine Total 450 ml 1400 ml 1700 ml # Voids 2 # Bowel Movements 0 Result Diagram: 08/21/17 0435 08/22/[address] Angiography 08/20/17 0000 Signed Impressions: Service Date/Time: Sunday, August 20, 2017 03:57 - CONCLUSION: 1. No evidence of pulmonary embolism. 2. Probable left adrenal adenoma Kendall Fang MD Chest X-Ray 08/19/17 0000 Signed Impressions: Service Date/Time: Saturday, August 19, 2017 20:00 - CONCLUSION: No acute disease. Yong Pavon MD Objective Remarks GENERAL: Pleasant middle-aged white female in no acute distress, on nasal cannula no distress. HEENT: PERRLA, EOMI. No scleral icterus or conjunctival pallor. No lid lag or facial droop. CARDIOVASCULAR: Regular rate and rhythm. No obvious murmurs to auscultation. No chest tenderness to palpation. RESPIRATORY: Decreased breath sounds no wheezes equal breath sounds GASTROINTESTINAL: Abdomen soft, non-tender, nondistended. BS normal. MUSCULOSKELETAL: Extremities without clubbing, cyanosis with bilateral trace leg edema. No obvious deformities. NEUROLOGICAL: Awake, alert and oriented x4. No focal neurologic deficits. Moving both upper and lower extremities spontaneously. Procedures none A/P Problem List: (1) COPD (chronic obstructive pulmonary disease) ICD Code: J44.9 - Chronic obstructive pulmonary disease, unspecified (2) Hypoxia ICD Code: R09.02 - Hypoxemia (3) DM (diabetes mellitus) ICD Code: E11.9 - Type 2 diabetes mellitus without complications Assessment and Plan 1. COPD: Chronic Respiratory Failure w/ Acute Exacerbation. Severe. S/p Prednisone 60mg and DuoNeb in ER w/ minimal improvement. CXR w/ no acute findings, images reviewed by me. Improving ct DuoNeb, prednisone, Mucinex, Symbicort and Levaquin for empiric treatment of atypical PNA. Increase activity. BiPAP as needed. Stable for discharge 2. Hypoxia: O2 sat 78% on RA, has remained hypoxic while in ER despite Venti- mask at 50% w/ O2 80's. ABG reviewed. Improved wean and dc O2 tolerating 3L prn BIPAP. Failed Walk test 3. DM: Sliding scale w/ Accu-Cheks. Uncontrolled will increase Levemir to 25 units morning and 55 units at bedtime. Restart metformin. Diabetic education. A1c 12.9 4. Possible left AG adenoma. Op f/u DVT Prophylaxis: Heparin sq Discharge Planning Stable for discharge Stephan Peterson MD Aug 22, 2017 09:42
[2017-08-22] MEDS ORDERED: LEVEMIR SQ ×3 (09:45→16:43)
[2017-08-22] MEDS: metFORMIN HCL 500 MG TAB PO SCH ×2 (09:49→17:26)
--- NOTE | 2017-08-22 15:49 | HHI.DS ---
Discharge Summary Admission Date Aug 20, 2017 at 01:30 Discharge Date: Aug 22, 2017 Admitting Diagnosis (1) COPD (chronic obstructive pulmonary disease) ICD Code: J44.9 - Chronic obstructive pulmonary disease, unspecified Diagnosis: Principal (2) Hypoxia ICD Code: R09.02 - Hypoxemia Diagnosis: Principal (3) DM (diabetes mellitus) ICD Code: E11.9 - Type 2 diabetes mellitus without complications Diagnosis: Principal Procedures none Brief History - From Admission This is a 51-year-old female with a PMH of DM, COPD and Tobacco Abuse who presented to ER with complaints of SOB, wheezing, congestion and sore throat x3 days. States she has been using Combivent at home w/ minimal relief. Denies fever or chills. No sick contacts. On arrival, BP 129/70, HR 110, O2 sat 78% on RA, Afebrile. CBC essentially unremarkable. Chemistry unremarkable except for Na 129, BS 331. ABG 7.37, PCO2 53, PO2 62 on 50% Ventimask. CXR w/ no acute findings. Flu Negative, Strep Negative. S/p Prednisone 60mg po and DuoNeb in ER w/ minimal improvement. CBC/BMP: 08/21/17 0435 08/22/17 0332 Significant Findings Laboratory Tests Test 08/19/17 19:58 08/19/17 23:45 08/20/17 04:50 08/21/17 04:35 Red Blood Count 5.44 MIL/MM3 (4.00-5.30) Hemoglobin 16.2 GM/DL (11.6-15.3) 15.5 GM/DL (11.6-15.3) Hematocrit 49.3 % (35.0-46.0) 47.5 % (35.0-46.0) Neutrophils (%) (Auto) 72.6 % (16.0-70.0) 84.8 % (16.0-70.0) Monocytes (%) (Auto) 10.8 % (0.0-8.0) Lymphocytes # (Auto) 0.8 TH/MM3 (1.0-4.8) 0.8 TH/MM3 (1.0-4.8) Random Glucose 331 MG/DL (74-106) 404 MG/DL (74-106) Calcium Level 8.0 MG/DL (8.5-10.1) Sodium Level 129 MEQ/L (136-145) 129 MEQ/L (136-145) Chloride Level 91 MEQ/L (98-107) 89 MEQ/L (98-107) Estimat Glomerular Filtration Rate 77 ML/MIN (>89) 64 ML/MIN (>89) Blood Gas HCO3 30 mmol/L (22-26) Blood Gas Base Excess 5.1 mmol/L (-2-2) Blood Gas Oxygen Saturation 88 % (90-100) Arterial Blood pH 7.37 (7.380-7.420) Arterial Blood Partial Pressure CO2 53 mmHg (38-42) Lymphocytes (%) (Auto) 8.3 % (9.0-44.0) Blood Urea Nitrogen 32 MG/DL (7-18) Albumin 3.2 GM/DL (3.4-5.0) Carbon Dioxide Level 32.6 MEQ/L (21.0-32.0) Hemoglobin A1c 12.9 % (4.3-6.0) Test 08/22/17 03:32 Blood Urea Nitrogen 24 MG/DL (7-18) Random Glucose 255 MG/DL (74-106) Sodium Level 134 MEQ/L (136-145) Chloride Level 92 MEQ/L (98-107) Carbon Dioxide Level 33.4 MEQ/L (21.0-32.0) Estimat Glomerular Filtration Rate 86 ML/MIN (>89) Imaging Last Impressions CT Angiography 08/20/17 0000 Signed Impressions: Service Date/Time: Sunday, August 20, 2017 03:57 - CONCLUSION: 1. No evidence of pulmonary embolism. 2. Probable left adrenal adenoma Kendall Fang MD Chest X-Ray 08/19/17 0000 Signed Impressions: Service Date/Time: Saturday, August 19, 2017 20:00 - CONCLUSION: No acute disease. Yong Pavon MD PE at Discharge GENERAL: Pleasant middle-aged white female in no acute distress, on nasal cannula no distress. HEENT: PERRLA, EOMI. No scleral icterus or conjunctival pallor. No lid lag or facial droop. CARDIOVASCULAR: Regular rate and rhythm. No obvious murmurs to auscultation. No chest tenderness to palpation. RESPIRATORY: Decreased breath sounds no wheezes equal breath sounds GASTROINTESTINAL: Abdomen soft, non-tender, nondistended. BS normal. MUSCULOSKELETAL: Extremities without clubbing, cyanosis with bilateral trace leg edema. No obvious deformities. NEUROLOGICAL: Awake, alert and oriented x4. No focal neurologic deficits. Moving both upper and lower extremities spontaneously. Hospital Course 1. COPD: Chronic Respiratory Failure w/ Acute Exacerbation. Severe. S/p Prednisone 60mg and DuoNeb in ER w/ minimal improvement. CXR w/ no acute findings, images reviewed by me. Improving ct DuoNeb, prednisone, Mucinex, Symbicort and Levaquin for empiric treatment of atypical PNA. Increase activity. BiPAP as needed. Stable for discharge 2. Hypoxia: O2 sat 78% on RA, has remained hypoxic while in ER despite Venti- mask at 50% w/ O2 80's. ABG reviewed. Improved wean and dc O2 tolerating 3L prn BIPAP. Failed Walk test 3. DM: Sliding scale w/ Accu-Cheks. Uncontrolled will increase Levemir to 25 units morning and 55 units at bedtime. Restart metformin. Diabetic education. A1c 12.9 4. Possible left AG adenoma. Op f/u DVT Prophylaxis: Heparin sq Pt Condition on Discharge: Stable Discharge Disposition: Discharge Home Discharge Time: > 30 minutes Discharge Instructions DIET: Follow Instructions for: Heart Healthy Diet, Diabetic Diet Activities you can perform: Regular-No Restrictions Activities to Avoid: Driving Follow up Referrals: PCP Follow-up - 1 Week Pulmonology - 1 Week New Medications: Albuterol 18 GM Inh (Ventolin Hfa 18 GM Inh) 90 Mcg/Act Aer 2 PUFF INH Q4H PRN for SHORTNESS OF BREATH, #1 INHALER 0 Refills Ipratropium HFA 12.9 GM Inh (Atrovent HFA 12.9 GM Inh) 17 Mcg/Actuation Aer 2 PUFF INH Q6HR for Breathing Treatment, #1 INHALER 0 Refills Levofloxacin (Levaquin) 750 Mg Tablet 750 MG PO DAILY for Infection, #4 TAB 0 Refills Oxygen tank (Oxygen tank) 1 Ea Tank LITER CARLYN.CANULA CONTINUOUS for HYPOXEMIA PREVENTION, #1 Oxygen Concentrator Portable Gaseous 2 L/min via Nasal Cannula Continuous For 99 months Prednisone (Prednisone) 20 Mg Tab 40 MG PO DAILY for Control Inflammation, #10 TAB 0 Refills Take 40 mg (2 tablets) daily for 5 days Hydrocodone/Acetaminophen (Hydrocodone-Acetamin 5-325 mg) 5 Mg-325 Mg Tablet 1 TAB PO Q6H PRN for PAIN SCALE 3 TO 5, #28 TAB Insulin Detemir Inj (Levemir Inj) 1,000 unit/ 10 ML Vial 55 UNITS SQ HS for Blood Sugar Management, #30 INJECTION Do not mix with any other Insulin. Insulin Detemir Inj (Levemir Inj) 1,000 unit/ 10 ML Vial 25 UNITS SQ DAILYAC for Blood Sugar Management, #30 INJECTION Do not mix with any other Insulin. [Budeson-Formot 160-4.5 Mcg Inh] () 60 PUFF AERO 2 PUFF INH Q12HR for Breathing Treatment, #1 PUFF Continued Medications: Atorvastatin (Atorvastatin) 40 Mg Tab 40 MG PO HS for Cholesterol Management, #30 TAB 0 Refills Cyclobenzaprine (Flexeril) 5 Mg Tab 5 MG PO TID for Muscle Spasm, #90 TAB [address] (Duloxetine DR) 20 Mg Capdr 20 MG PO DAILY, #30 CAP 0 Refills Gabapentin (Gabapentin) 400 Mg Cap 400 CAP PO TID, #30 CAP 0 Refills Lisinopril (Lisinopril) 10 Mg Tab 10 MG PO DAILY, #30 TAB 0 Refills Metformin ER (Metformin ER) 1,000 Mg Brandt 1000 MG PO BID for Blood Sugar Management, #30 TAB 0 Refills With evening meal Omeprazole (Omeprazole) 20 Mg Tab 20 MG PO DAILY, #30 TAB 0 Refills Discontinued Medications: Insulin Glargine Inj (Lantus Inj) 1,000 Unit/10 Ml Vial 44 UNITS SQ HS for Blood Sugar Management, VIAL 0 Refills Stephan Peterson MD Aug 22, 2017 15:49
--- NOTE | 2017-08-22 17:49 | HHI.PR ---
"Subjective Remarks The patient doing well. No shortness of breath. Feels better. Awaiting for oxygen to be discharged home. Objective Vital Signs Date Time Temp Pulse Resp B/P (MAP) Pulse Ox O2 Delivery O2 Flow Rate FiO2 08/22/17 17:00 102 08/22/17 16:00 88 08/22/17 15:00 98.0 95 18 114/55 (74) 95 08/22/17 15:00 79 08/22/17 14:00 98 08/22/17 13:00 96 08/22/17 12:00 92 08/22/17 11:00 97.9 93 20 110/56 (74) 92 08/22/17 11:00 84 08/22/17 10:00 94 08/22/17 09:00 114 08/22/17 08:08 93 Nasal Cannula 3.00 08/22/17 08:00 96 08/22/17 07:00 93 Nasal Cannula 3.00 08/22/17 07:00 92 08/22/17 06:13 72 08/22/17 05:10 78 08/22/17 04:00 80 08/22/17 03:00 98.2 83 18 128/59 (82) 94 08/22/17 03:00 77 08/22/17 02:00 82 08/22/17 01:00 86 08/22/17 00:00 122 08/21/17 23:00 87 08/21/17 23:00 98.0 90 16 112/53 (72) 93 08/21/17 22:00 86 08/21/17 21:00 86 08/21/17 20:23 89 Nasal Cannula 3.50 08/21/17 20:00 88 08/21/17 20:00 98.6 87 18 128/59 (82) 94 08/21/17 19:00 94 Nasal Cannula 3.50 08/21/17 19:00 93 08/21/17 18:01 95 I/O 08/21/17 08/21/17 08/21/17 08/22/17 08/22/17 08/22/17 07:00 15:00 23:00 07:00 15:00 23:00 Intake Total 440 ml 1080 ml 700 ml 720 ml Output Total 450 ml 1400 ml 1700 ml 750 ml Balance -10 ml -320 ml -1000 ml -30 ml Intake Oral 440 ml 1080 ml 700 ml 720 ml Output Urine Total 450 ml 1400 ml 1700 ml 750 ml # Voids 2 # Bowel Movements 0 0 Result Diagram: 08/21/17 0435 08/22/17 0332 Objective Remarks Physical exam: General appearance: [no acute distress|distress] Head and neck examination: [atraumatic normocephalic] Neck: [supple trachea midline] Lungs: [clear bilaterally no wheezing or crackles] Heart: [normal S1-S2] Abdomen: [soft nontender positive bowel sounds] Extremities: [no significant edema no cyanosis] Neurological examination: [nonfocal moves all extremities awake oriented] Skin: [no rashes seen] Assessment and Plan Assessment and Plan COPD with exacerbation Acute hypoxic/hypercapnic respiratory insufficiency Obesity Likely KARYNA Tobacco dependence She is much better overall. The patient is ready for discharge as soon as oxygen is arranged. Discussed with the attending and the nurse. I will sign off at this point. Levon Florez MD Aug 22, 2017 17:49"
[2017-08-22] MEDS: INSULIN DETEMIR 100 UNITS/ML VIAL SQ SCH (21:31)
[2017-08-22] MEDS: ATORVASTATIN 40 MG TAB PO SCH (21:32)
[2017-08-23] VITALS (16 sets, daily range): BP systolic 96–133; BP diastolic 54–60; PULSE 76–104; RESP 18; TEMP 98–98.8; O2SAT 91–97
[2017-08-23] MEDS: RESP: ALBUTEROL 2.5 MG/IPRATROPIUM 0.5 MG NEB (SCH) NEB ×4 (07:32→20:00)
[2017-08-23] MEDS: INSULIN ASPART SUPPLEMENTAL SCALE SQ SCH ×4 (08:00→20:26)
[2017-08-23] MEDS: INSULIN DETEMIR 100 UNITS/ML VIAL SQ SCH ×2 (08:00→20:26)
[2017-08-23] MEDS: SODIUM CHLORIDE 0.9% FLUSH 10 ML FLUSH IV FLUSH SCH ×2 (09:00→20:30)
[2017-08-23] MEDS: LEVOFLOXACIN 750 MG TAB PO SCH (09:00)
[2017-08-23] MEDS: LISINOPRIL 10 MG TAB PO SCH (09:01)
[2017-08-23] MEDS: predniSONE 20 MG TAB PO SCH (09:01)
[2017-08-23] MEDS: guaiFENesin E.R. 600 MG TAB PO SCH ×2 (09:01→20:27)
[2017-08-23] MEDS: HEPARIN SODIUM - SQ 10,000 UNITS/ML VIAL SQ SCH ×2 (09:01→20:29)
[2017-08-23] MEDS: BUDESONIDE-FORMOTEROL 160/4.5 MCG INHALER INH SCH ×2 (09:01→20:29)
[2017-08-23] MEDS: metFORMIN HCL 500 MG TAB PO SCH ×2 (09:02→18:04)
[2017-08-23] MEDS: DULoxetine HCl DR 20 MG CAP PO SCH (09:02)
[2017-08-23] MEDS: PANTOPRAZOLE SOD 20 MG DELAYED RELEASE TAB PO SCH (09:02)
[2017-08-23] MEDS: CYCLOBENZAPRINE HCL 10 MG TAB PO SCH ×3 (09:02→18:04)
[2017-08-23] MEDS: GABAPENTIN 400 MG CAP PO SCH ×3 (09:02→18:05)
--- NOTE | 2017-08-23 09:54 | HHI.PR ---
Subjective Remarks F/U COPD. Doing ok tolerating 3 l NC. Insurance wont pay for oxygen. FS 70 this am received 25 units novolog HS discussed with RN. Seen with Objective Vitals Vital Signs Date Time Temp Pulse Resp B/P (MAP) Pulse Ox O2 Delivery O2 Flow Rate FiO2 08/23/17 09:00 94 08/23/17 08:00 94 Nasal Cannula 3.00 08/23/17 08:00 76 08/23/17 08:00 98.7 103 18 133/59 (83) 94 08/23/17 07:37 91 Nasal Cannula 3.00 08/23/17 07:00 78 08/23/17 06:06 83 08/23/17 05:00 96 08/23/17 04:00 98.0 77 18 118/54 (75) 95 08/23/17 04:00 90 08/23/17 03:00 80 08/23/17 02:00 80 08/23/17 01:00 78 08/23/17 00:00 98.0 82 18 114/57 (76) 95 08/23/17 00:00 91 Nasal Cannula 3.00 08/23/17 00:00 88 08/22/17 23:00 82 08/22/17 22:00 92 08/22/17 21:00 90 08/22/17 20:00 106 08/22/17 20:00 98.0 95 18 114/55 (74) 95 08/22/17 19:22 97 Nasal Cannula 3.00 08/22/17 18:00 100 08/22/17 17:00 102 08/22/17 16:00 88 08/22/17 15:00 98.0 95 18 114/55 (74) 95 08/22/17 15:00 79 08/22/17 14:00 98 08/22/17 13:00 96 08/22/17 12:00 92 08/22/17 11:00 97.9 93 20 110/56 (74) 92 08/22/17 11:00 84 08/22/17 10:00 94 I/O 08/22/17 08/22/17 08/22/17 08/23/17 08/23/17 08/23/17 07:00 15:00 23:00 07:00 15:00 23:00 Intake Total 700 ml 720 ml 240 ml Output Total 1700 ml 750 ml Balance -1000 ml -30 ml 240 ml Intake Oral 700 ml 720 ml 240 ml Output Urine Total 1700 ml 750 ml # Bowel Movements 0 0 0 Result Diagram: 08/21/17 0435 08/22/17 [address] Angiography 08/20/17 0000 Signed Impressions: Service Date/Time: Sunday, August 20, 2017 03:57 - CONCLUSION: 1. No evidence of pulmonary embolism. 2. Probable left adrenal adenoma Kendall Fang MD Chest X-Ray 08/19/17 0000 Signed Impressions: Service Date/Time: Saturday, August 19, 2017 20:00 - CONCLUSION: No acute disease. Yong Pavon MD Objective Remarks GENERAL: Pleasant middle-aged white female in no acute distress, on nasal cannula no distress. HEENT: PERRLA, EOMI. No scleral icterus or conjunctival pallor. No lid lag or facial droop. CARDIOVASCULAR: Regular rate and rhythm. No obvious murmurs to auscultation. No chest tenderness to palpation. RESPIRATORY: Decreased breath sounds no wheezes equal breath sounds GASTROINTESTINAL: Abdomen soft, non-tender, nondistended. BS normal. MUSCULOSKELETAL: Extremities without clubbing, cyanosis with bilateral trace leg edema. No obvious deformities. NEUROLOGICAL: Awake, alert and oriented x4. No focal neurologic deficits. Moving both upper and lower extremities spontaneously. Procedures none A/P Problem List: (1) COPD (chronic obstructive pulmonary disease) ICD Code: J44.9 - Chronic obstructive pulmonary disease, unspecified (2) Hypoxia ICD Code: R09.02 - Hypoxemia (3) DM (diabetes mellitus) ICD Code: E11.9 - Type 2 diabetes mellitus without complications Assessment and Plan 1. COPD: Chronic Respiratory Failure w/ Acute Exacerbation. Severe. S/p Prednisone 60mg and DuoNeb in ER w/ minimal improvement. CXR w/ no acute findings, images reviewed by me. Improving ct DuoNeb, prednisone, Mucinex, Symbicort and Levaquin for empiric treatment of atypical PNA. Increase activity. BiPAP as needed. Stable for discharge with home oxygen. Insurance will not cover home oxygen. Case management to follow 2. Hypoxia: O2 sat 78% on RA, has remained hypoxic while in ER despite Venti- mask at 50% w/ O2 80's. ABG reviewed. Improved wean and dc O2 tolerating 3L prn BIPAP. Failed Walk test 3. DM: Sliding scale w/ Accu-Cheks. Uncontrolled continue Levemir 25 units morning and 55 units at bedtime. Restarted metformin. Diabetic education. A1c 12.9. Hypoglycemia protocol. Fingerstick of 70 after receiving 25 units of NovoLog at bedtime. Will decrease sliding scale to low-dose 4. Possible left AG adenoma. Op f/u DVT Prophylaxis: Heparin sq Discharge Planning Stable for discharge with oxygen. The patient gets discharged without oxygen high likelihood of readmission Stephan Peterson MD Aug 23, 2017 09:54
[2017-08-23] MEDS: ATORVASTATIN 40 MG TAB PO SCH (20:27)
[2017-08-24] VITALS: BP 140/68; PULSE 85; PULSE 95; RESP 16; TEMP 97; O2SAT 94
[2017-08-24 04:00] VITALS: BP 118/71; PULSE 86; PULSE 96; RESP 16; TEMP 98.7; O2SAT 92
[2017-08-24] MEDS: RESP: ALBUTEROL 2.5 MG/IPRATROPIUM 0.5 MG NEB (SCH) NEB (07:33)
[2017-08-24 07:35] VITALS: O2SAT 92
[2017-08-24 08:00] VITALS: PULSE 100
[2017-08-24] MEDS: INSULIN ASPART SUPPLEMENTAL SCALE SQ SCH ×2 (08:00→13:38)
[2017-08-24 08:18] VITALS: BP 104/70; PULSE 100; RESP 18; TEMP 97.2; O2SAT 92
[2017-08-24] MEDS: guaiFENesin E.R. 600 MG TAB PO SCH (10:02)
[2017-08-24] MEDS: predniSONE 20 MG TAB PO SCH (10:02)
[2017-08-24] MEDS: PANTOPRAZOLE SOD 20 MG DELAYED RELEASE TAB PO SCH (10:02)
[2017-08-24] MEDS: DULoxetine HCl DR 20 MG CAP PO SCH (10:02)
[2017-08-24] MEDS: LEVOFLOXACIN 750 MG TAB PO SCH (10:02)
[2017-08-24] MEDS: CYCLOBENZAPRINE HCL 10 MG TAB PO SCH ×2 (10:03→12:31)
[2017-08-24] MEDS: GABAPENTIN 400 MG CAP PO SCH ×2 (10:03→12:31)
[2017-08-24] MEDS: metFORMIN HCL 500 MG TAB PO SCH (10:03)
[2017-08-24] MEDS: HEPARIN SODIUM - SQ 10,000 UNITS/ML VIAL SQ SCH (10:04)
[2017-08-24] MEDS: LISINOPRIL 10 MG TAB PO SCH (10:04)
[2017-08-24] MEDS: BUDESONIDE-FORMOTEROL 160/4.5 MCG INHALER INH SCH (10:05)
[2017-08-24] MEDS: SODIUM CHLORIDE 0.9% FLUSH 10 ML FLUSH IV FLUSH SCH (10:05)
[2017-08-24] MEDS: INSULIN DETEMIR 100 UNITS/ML VIAL SQ SCH (10:05)
[2017-08-24 12:33] VITALS: BP 111/69; PULSE 104; RESP 18; TEMP 98.1
--- NOTE | 2017-08-24 15:03 | HHI.PR ---
Subjective Remarks 51-year-old female who was discharged yesterday, awaiting funding for home oxygen. Her only complaint is that her IVs in her right hand are uncomfortable Objective Vitals Vital Signs Date Time Temp Pulse Resp B/P (MAP) Pulse Ox O2 Delivery O2 Flow Rate FiO2 08/24/17 12:33 98.1 104 18 111/69 (83) 08/24/17 08:18 97.2 100 18 104/70 (81) 92 08/24/17 08:00 92 Nasal Cannula 3.00 08/24/17 08:00 100 08/24/17 07:35 92 Nasal Cannula 3.00 08/24/17 04:00 98.7 96 16 118/71 (87) 92 08/24/17 04:00 86 08/24/17 00:00 97.0 95 16 140/68 (92) 94 08/24/17 00:00 85 08/23/17 20:28 97 08/23/17 20:00 Nasal Cannula 3.00 08/23/17 20:00 98.5 97 18 96/60 (72) 92 08/23/17 16:45 98.8 84 18 116/56 (76) 94 I/O 08/23/17 08/23/17 08/23/17 08/24/17 08/24/17 08/24/17 07:00 15:00 23:00 07:00 15:00 23:00 Intake Total 240 ml Balance 240 ml Intake Oral 240 ml # Bowel Movements 0 Result Diagram: 08/21/17 0435 08/22/17 0332 Objective Remarks GENERAL: Obese,danny appearing patient SKIN: Warm and dry. HEAD: Normocephalic. EYES: No scleral icterus. No injection or drainage. NECK: Supple, trachea midline. No JVD or lymphadenopathy. CARDIOVASCULAR: Regular rate and rhythm without murmurs, gallops, or rubs. RESPIRATORY: Breath sounds equal bilaterally. Delayed expiratory sounds ,no accessory muscle use. GASTROINTESTINAL: Abdomen soft, non-tender, nondistended. EXTREMITIES: No cyanosis, or edema. NEUROLOGICAL: Awake, alert, and oriented x 3. Non-focal. Procedures none A/P Problem List: (1) COPD (chronic obstructive pulmonary disease) ICD Code: J44.9 - Chronic obstructive pulmonary disease, unspecified (2) Hypoxia ICD Code: R09.02 - Hypoxemia (3) DM (diabetes mellitus) ICD Code: E11.9 - Type 2 diabetes mellitus without complications Assessment and Plan COPD exacerbation/atypical pneumonia Patient has been discharged yesterday and is awaiting home oxygen funding to be able to go home with. Her insurance would not pay for home oxygen Continue duo nebs, prednisone, Mucinex, Symbicort, Levaquin for coverage of atypical pneumonia and COPD exacerbation Hypoxia Saturates at 78% on room air, patient will need home oxygen for safety Type 2 diabetes Continue Levemir regiment, metformin restarted Hemoglobin A1c 12.9 Possible left adrenal adenoma Follow-up as outpatient DVT prophylaxis Heparin Discharge planning Awaiting funding for home oxygen Jacob Pugh MD Aug 24, 2017 15:03
== END 2017-08-24 17:22 | disposition home or self-care (01) | DRG 190 ==
LOC: NEPE 18:53 → NEDA 08-20 01:30 → NEDH 08-20 03:27 → N03A 08-20 06:48 → HCPC 08-20 23:33 → HCIN 08-23 11:10
PROVIDERS: ADMIT Family Medicine; ATTEND Family Medicine
PROC: 5A09457 Assistance with Respiratory Ventilation, 24-96 Consecutive Hours, Continuous Positive Airway Pressure (ICD-10-PCS; principal; 2017-08-19)
DX: J44.1 Chronic obstructive pulmonary disease with (acute) exacerbation (principal); J18.9 Pneumonia, unspecified organism; J44.0 Chronic obstructive pulmonary disease with (acute) lower respiratory infection; R09.02 Hypoxemia; E11.9 Type 2 diabetes mellitus without complications; F17.210 Nicotine dependence, cigarettes, uncomplicated; E66.9 Obesity, unspecified; G47.33 Obstructive sleep apnea (adult) (pediatric); E04.9 Nontoxic goiter, unspecified; R60.0 Localized edema; Z79.84 Long term (current) use of oral hypoglycemic drugs; Z79.899 Other long term (current) drug therapy
CPT/HCPCS: 36600; 71045; 71275; 80048; 80053; 82805; 82948; 83036; 83735; 85025; 87081; 87641; 87804; 87880; 94002; 94003; 94618; 94640; 94664; 99285; J1644; J1815; J1940; J1956; J2920; J7512; Q9967